=== PATIENT | female | born 1950 | race Caucasian/White ===

== ENCOUNTER 2021-12-07 22:23 | Emergency (ER) | payer OTHER, MEDICARE ==
[2021-12-07] MEDS ORDERED: Morphine 4 MG/ML VIAL ONE (23:29)
[2021-12-07] MEDS ORDERED: Ondansetron PF 4 MG/2 ML Vial ONE (23:29)
[2021-12-08] MEDS ORDERED: Morphine 4 MG/ML VIAL ONE (00:31)
[2021-12-08] MEDS ORDERED: Ketorolac Tromethamine 30 MG/ML VIAL ONE (00:31)
[2021-12-08] MEDS ORDERED: Boostrix 0.5 ML (Tdap) VIAL (>/=7 yrs of age) ONE (00:53)
== END 2021-12-08 01:04 | disposition home or self-care (01) ==
LOC: CSHERS 22:23
DX: S06.0X9A Concussion with loss of consciousness of unspecified duration, initial encounter (principal); S02.2XXA Fracture of nasal bones, initial encounter for closed fracture; S52.615A Nondisplaced fracture of left ulna styloid process, initial encounter for closed fracture; S59.202A Unspecified physeal fracture of lower end of radius, left arm, initial encounter for closed fracture; S62.305A Unspecified fracture of fourth metacarpal bone, left hand, initial encounter for closed fracture; S00.531A Contusion of lip, initial encounter; I10 Essential (primary) hypertension; Z79.899 Other long term (current) drug therapy; W01.198A Fall on same level from slipping, tripping and stumbling with subsequent striking against other object, initial encounter
CPT/HCPCS: 29125; 70450; 70486; 72125; 90471; 90715; 96374; 96375; 96376; J1885; J2270; J2405